=== PATIENT | male | born 1960 | race Caucasian/White ===

== ENCOUNTER → 2016-12-13 | Outpatient (REF) | payer BC | LOC: M LAB REF 11:53 | PROVIDERS: ATTEND Internal Medicine Medical Oncology | DX: D45 Polycythemia vera (principal) ==

== ENCOUNTER → 2016-12-16 | Outpatient (REF) | payer BC ==
[2016-12-19 00:09] LABS: HEMOGLOBIN A 97.4 % (94.0-98.0)
== END ==
LOC: M LAB REF 12:13
PROVIDERS: ATTEND Nurse Practitioner Family
DX: D45 Polycythemia vera (principal)

== ENCOUNTER → 2016-12-23 | Outpatient (REF) | payer BC | LOC: M LAB REF 16:37 | PROVIDERS: ATTEND Internal Medicine Medical Oncology | DX: D75.0 Familial erythrocytosis (principal) ==

== ENCOUNTER → 2017-02-11 | Outpatient (REF) | payer BC | LOC: M LAB REF 12:32 | PROVIDERS: ATTEND Internal Medicine Medical Oncology | DX: D75.1 Secondary polycythemia (principal) ==

== ENCOUNTER → 2017-05-16 | Outpatient (REF) | payer BC ==
[2017-05-16 19:08] LABS: MEAN CORPUSCULAR HEMOGLOBIN 29.4 pg (27.0-33.0); MEAN CORPUSCULAR HGB CONC 34.4 g/dl (32.0-36.5); MEAN CORPUSCULAR VOLUME 85.7 fl (80.0-96.0); RED CELL DISTRIBUTION WIDTH 14.7 % (11.5-14.5)
== END ==
LOC: M LABDRAW1 18:01
PROVIDERS: ATTEND Internal Medicine Endocrinology, Diabetes & Metabolism
DX: E29.1 Testicular hypofunction (principal)
CPT/HCPCS: 36415; 84403; 85027; G0103

== ENCOUNTER → 2017-09-05 | Outpatient (CLI) | payer BC ==
--- NOTE | 2017-09-05 10:10 | REP ---
Maxillofacial CT without contrast: History: Chronic maxillary sinusitis. Comparison study February 26, 2012. Technique: Helical scanning is acquired. Bone and soft-tissue window settings are reviewed for 3 mm axial reformatted images. Coronal multiplanar re-formation images are also generated and reviewed. CT findings: Mucosal thickening is again noted in the frontal and ethmoid sinuses bilaterally. Minimal mucosal thickening is seen in the anterior sims of the sphenoid sinuses. There is mild left maxillary sinus mucosal thickening and moderate right maxillary sinus mucosal thickening visible. No bony destructive lesion is seen. No intraorbital lesion is seen. The visualized intracranial structures are unremarkable. The bony nasal septum deviates somewhat to the right with a minimal beak the configuration. Nasal turbinate and soft tissues are symmetric. There is no evidence of nasal polyp. There is an aerated flaca bullosa in the left superior turbinate unchanged. The ostiomeatal complexes are obscured by mucosal thickening bilaterally. This is less prominent on the right but more prominent on the left than it was in the 2012 study. Mastoid aeration is normal and symmetric. Impression: Mucosal thickening consistent with polysinusitis. Right maxillary sinus is most pronounced. Bilateral OMC mucosal thickening is seen. Signed by Bassem Jacobson MD 09/05/2017 04:13 P
== END ==
LOC: M RAD 08:57
PROVIDERS: ATTEND Otolaryngology
DX: J32.0 Chronic maxillary sinusitis (principal)

== ENCOUNTER → 2017-11-17 | Outpatient (REF) | payer BC ==
[2017-11-17 19:54] LABS: INFLUENZA A AMPLIFICATION NEGATIVE (NEGATIVE); INFLUENZA B AMPLIFICATION POSITIVE (NEGATIVE)
== END ==
LOC: M LAB REF 18:15
DX: J11.1 Influenza due to unidentified influenza virus with other respiratory manifestations (principal)
CPT/HCPCS: 87502

== ENCOUNTER → 2018-11-06 | Outpatient (REF) | payer BC ==
[2018-11-06 13:47] LABS: HEMATOCRIT 41.4 % (42.0-52.0); HEMOGLOBIN 14.6 g/dl (13.5-17.5); MEAN CORPUSCULAR HEMOGLOBIN 31.7 pg (27.0-33.0); MEAN CORPUSCULAR HGB CONC 35.3 g/dl (32.0-36.5); MEAN CORPUSCULAR VOLUME 89.8 fl (80.0-96.0); PLATELET COUNT, AUTOMATED 349 10^3/uL (150-450); RED BLOOD COUNT 4.61 10^6/uL (4.30-6.10); WHITE BLOOD COUNT 9.3 10^3/uL (4.0-10.0)
[2018-11-06 13:49] LABS: APPEARANCE, URINE HAZY (CLEAR); BACTERIA, URINE AUTO NEGATIVE (NEGATIVE); BILIRUBIN, URINE AUTO NEGATIVE (NEGATIVE); BLOOD, URINE BLOOD NEGATIVE (NEGATIVE); COLOR, URINE YELLOW (YELLOW); GLUCOSE, URINE (UA) AUTO NEGATIVE (NEGATIVE); KETONE, URINE AUTO NEGATIVE (NEGATIVE); LEUKOCYTE ESTERASE, URINE AUTO NEGATIVE (NEGATIVE); MUCUS, URINE SMALL (NEGATIVE); NITRITE, URINE AUTO NEGATIVE (NEGATIVE); PROTEIN, URINE AUTO NEGATIVE (NEGATIVE); RBC, URINE AUTO 1 /HPF (0-3); SPECIFIC GRAVITY URINE AUTO 1.017 (1.002-1.035); SQUAMOUS EPITHELIAL CELL UR AU 0 /HPF (0-6); UROBILINOGEN, URINE AUTO 0.2 mg/dL (0.0-2.0); WBC, URINE AUTO 0 /HPF (0-3)
[2018-11-06 14:14] LABS: ALBUMIN 3.7 GM/DL (3.2-5.2); ALT/SGPT 20 U/L (12-78); BILIRUBIN,TOTAL 0.5 MG/DL (0.2-1.0); BLOOD UREA NITROGEN 22 MG/DL (7-18); C REACTIVE PROTEIN QUANTITATIV 2.43 MG/DL (0.00-0.30); CALCIUM LEVEL 8.7 MG/DL (8.5-10.1); CARBON DIOXIDE LEVEL 31 MEQ/L (21-32); CHLORIDE LEVEL 98 MEQ/L (98-107); CHOLESTEROL LEVEL 124 MG/DL (<200); CHOLESTEROL RISK RATIO 2.296 (<5); CREATININE FOR GFR 0.85 MG/DL (0.70-1.30); FERRITIN 382 NG/ML (26-388); GLOMERULAR FILTRATION RATE > 60.0 (>56); GLUCOSE, FASTING 98 MG/DL (70-100); HDL CHOLESTEROL 54 MG/DL (>40); LDL CHOLESTEROL 56 MG/DL (<100); NON-HDL-C 70 MG/DL; POTASSIUM SERUM 4.2 MEQ/L (3.5-5.1); PROSTATIC SPECIFIC AG MONITOR 0.93 NG/ML (< 4.00); SODIUM LEVEL 136 MEQ/L (136-145); THYROXINE (T4) 10.2 UG/DL (4.5-12.0); TOTAL PROTEIN 7.6 GM/DL (6.4-8.2); TRIGLYCERIDES LEVEL 72 MG/DL (<150); URIC ACID 4.1 MG/DL (3.5-7.2)
[2018-11-06 14:15] LABS: TOTAL 25(OH) VITAMIN D 42.8 NG/ML (30.0-100.0)
[2018-11-06 14:16] LABS: FOLATE 18.6 NG/ML (>5.4)
[2018-11-06 14:19] LABS: ERYTHROCYTE SEDIMENTATION RATE 54 mm/hr (0-20)
[2018-11-06 14:34] LABS: HEMOGLOBIN A1c 5.1 %
== END ==
LOC: M LABDRAW1 12:09
PROVIDERS: ATTEND Internal Medicine Cardiovascular Disease
DX: M10.9 Gout, unspecified (principal); E55.9 Vitamin D deficiency, unspecified; E78.5 Hyperlipidemia, unspecified; D64.9 Anemia, unspecified; E03.9 Hypothyroidism, unspecified; E11.9 Type 2 diabetes mellitus without complications; N39.0 Urinary tract infection, site not specified

== ENCOUNTER → 2018-11-20 | Outpatient (REF) | payer BC ==
[2018-11-24 08:06] LABS: Lyme Disease IgG Ab 18 kDa Ban Absent (.); Lyme Disease IgG Ab 23 kDa Ban Absent (.); Lyme Disease IgG Ab 28 kDa Ban Absent (.); Lyme Disease IgG Ab 30 kDa Ban Absent (.); Lyme Disease IgG Ab 39 kDa Ban Absent (.); Lyme Disease IgG Ab 41 kDa Ban Absent (.); Lyme Disease IgG Ab 45 kDa Ban Absent (.); Lyme Disease IgG Ab 58 kDa Ban Absent (.); Lyme Disease IgG Ab 66 kDa Ban Absent (.); Lyme Disease IgG Ab 93 kDa Ban Absent (.); Lyme Disease IgG West Blot Int Negative (.); Lyme Disease IgG/IgM Antibodie 1.21 ISR (0.00-0.90); Lyme Disease IgM Ab 23 kDa Ban Absent (.); Lyme Disease IgM Ab 39 kDa Ban Absent (.); Lyme Disease IgM Ab 41 kDa Ban Absent (.); Lyme Disease IgM Ab Quantitati <0.80 index (0.00-0.79); Lyme Disease IgM West Blot Int Negative (.)
== END ==
LOC: M LABNEURO 10:35
PROVIDERS: ATTEND Internal Medicine Cardiovascular Disease
DX: Z11.2 Encounter for screening for other bacterial diseases (principal)

== ENCOUNTER → 2018-12-17 | Outpatient (CLI) | payer BC | LOC: M LAB 16:52 | PROVIDERS: ATTEND Psychiatry & Neurology Neurology | DX: M35.3 Polymyalgia rheumatica (principal) ==

== ENCOUNTER → 2019-01-18 | Outpatient (REF) | payer BC | LOC: M LABNEURO 09:01 | PROVIDERS: ATTEND Psychiatry & Neurology Neurology | DX: M35.3 Polymyalgia rheumatica (principal) ==

== ENCOUNTER → 2019-02-01 | Outpatient (REF) | payer BC | LOC: M LABNEURO 10:17 | PROVIDERS: ATTEND Psychiatry & Neurology Neurology | DX: M35.3 Polymyalgia rheumatica (principal) ==

== ENCOUNTER → 2019-02-16 | Outpatient (REF) | payer BC | LOC: M LABNEURO 08:52 | PROVIDERS: ATTEND Psychiatry & Neurology Neurology | DX: M35.3 Polymyalgia rheumatica (principal) ==

== ENCOUNTER → 2019-04-05 | Outpatient (REF) | payer BC | LOC: M LABNEURO 13:00 | PROVIDERS: ATTEND Psychiatry & Neurology Neurology | DX: M35.3 Polymyalgia rheumatica (principal) ==

== ENCOUNTER → 2019-05-12 | Outpatient (REF) | payer BC ==
[2019-05-12 18:58] LABS: BASO # 0.1 10^3/uL (0.0-0.2); EOS # 0.1 10^3/uL (0.0-0.50); EOS % 0.7 % (0.0-3.0); HEMATOCRIT 49.5 % (42.0-52.0); HEMOGLOBIN 17.3 g/dl (13.5-17.5); LYMPH # 2.2 10^3/uL (1.5-4.5); LYMPH % 26.8 % (24.0-44.0); MEAN CORPUSCULAR HEMOGLOBIN 32.8 pg (27.0-33.0); MEAN CORPUSCULAR HGB CONC 34.9 g/dl (32.0-36.5); MEAN CORPUSCULAR VOLUME 93.9 fl (80.0-96.0); MONO # 0.4 10^3/uL (0.0-0.8); MONO % 5.2 % (0.0-5.0); NEUTROPHILS # 5.4 10^3/uL (1.8-7.7); NEUTROPHILS % 65.8 % (36.0-66.0); PLATELET COUNT, AUTOMATED 235 10^3/uL (150-450); RED BLOOD COUNT 5.27 10^6/uL (4.30-6.10); WHITE BLOOD COUNT 8.1 10^3/uL (4.0-10.0)
[2019-05-12 19:56] LABS: ERYTHROCYTE SEDIMENTATION RATE 1 mm/hr (0-20)
== END ==
LOC: M LABNEURO 15:18
PROVIDERS: ATTEND Psychiatry & Neurology Neurology
DX: M35.3 Polymyalgia rheumatica (principal)

== ENCOUNTER → 2019-05-31 | Outpatient (REF) | payer BC | LOC: M LABDRAW1 09:50 | PROVIDERS: ATTEND Psychiatry & Neurology Neurology | DX: M05.9 Rheumatoid arthritis with rheumatoid factor, unspecified (principal) ==

== ENCOUNTER → 2019-06-04 | Outpatient (REF) | payer BC ==
[2019-06-04 15:57] LABS: HEMATOCRIT 48.5 % (42.0-52.0); HEMOGLOBIN 17.6 g/dl (13.5-17.5); MEAN CORPUSCULAR HGB CONC 36.3 g/dl (32.0-36.5); MEAN CORPUSCULAR VOLUME 93.8 fl (80.0-96.0); PLATELET COUNT, AUTOMATED 240 10^3/uL (150-450); RED BLOOD COUNT 5.17 10^6/uL (4.30-6.10); WHITE BLOOD COUNT 8.3 10^3/uL (4.0-10.0)
[2019-06-04 16:27] LABS: ALBUMIN 4.1 GM/DL (3.2-5.2); ALT/SGPT 42 U/L (12-78); BILIRUBIN,TOTAL 0.7 MG/DL (0.2-1.0); BLOOD UREA NITROGEN 18 MG/DL (7-18); CALCIUM LEVEL 9.6 MG/DL (8.5-10.1); CARBON DIOXIDE LEVEL 28 MEQ/L (21-32); CHLORIDE LEVEL 103 MEQ/L (98-107); CHOLESTEROL LEVEL 176 MG/DL (< 200); CPK CREATINE PHOSPHOKINASE 54 U/L (39-308); CREATININE FOR GFR 0.98 MG/DL (0.70-1.30); GLOMERULAR FILTRATION RATE > 60.0 (>56); GLUCOSE, FASTING 74 MG/DL (70-100); LDH LACTATE DEHYDROGENASE 216 U/L (87-241); PHOSPHORUS LEVEL 3.7 MG/DL (2.5-4.9); POTASSIUM SERUM 3.9 MEQ/L (3.5-5.1); RHEUMATOID FACTOR QUANT < 10.0 IU/ML (<15.0); SODIUM LEVEL 141 MEQ/L (136-145); TRIGLYCERIDES LEVEL 37 MG/DL (<150)
[2019-06-10 00:06] LABS: ANCA-ATYPICAL <1:20 titer (Neg:<1:20); ANTI DS-DNA AB <1:10 titer (.); ANTI SCLERODERMA ANTIBODIES <0.2 AI (0.0-0.9); ANTINUCLEAR ANTIBODIES DIRECT Negative (Negative); CYTOPLASMIC NEUTROP AB ANCA-C <1:20 titer (Neg:<1:20); PERINUCLEAR AB ANCA-P <1:20 titer (Neg:<1:20); RNP ANTIBODIES <0.2 AI (0.0-0.9); SMITH ANTIBODIES <0.2 AI (0.0-0.9)
== END ==
LOC: M LABDRAW1 13:37
PROVIDERS: ATTEND Internal Medicine Cardiovascular Disease
DX: E87.6 Hypokalemia (principal); M32.9 Systemic lupus erythematosus, unspecified; M06.9 Rheumatoid arthritis, unspecified; D64.9 Anemia, unspecified; M35.3 Polymyalgia rheumatica; M15.9 Polyosteoarthritis, unspecified

== ENCOUNTER → 2019-07-20 | Outpatient (REF) | payer BC ==
[2019-07-20 14:12] LABS: BASO # 0.1 10^3/uL (0.0-0.2); EOS # 0.7 10^3/uL (0.0-0.5); EOS % 11.2 % (0.0-3.0); HEMATOCRIT 44.5 % (42.0-52.0); HEMOGLOBIN 15.9 g/dl (13.5-17.5); LYMPH # 2.4 10^3/uL (1.5-5.0); MEAN CORPUSCULAR HEMOGLOBIN 33.3 pg (27.0-33.0); MEAN CORPUSCULAR HGB CONC 35.7 g/dl (32.0-36.5); MEAN CORPUSCULAR VOLUME 93.3 fl (80.0-96.0); MONO # 0.6 10^3/uL (0.0-0.8); MONO % 9.4 % (0.0-5.0); NEUTROPHILS # 2.5 10^3/uL (1.5-8.5); NEUTROPHILS % 40.2 % (36.0-66.0); PLATELET COUNT, AUTOMATED 248 10^3/uL (150-450); RED BLOOD COUNT 4.77 10^6/uL (4.30-6.10); WHITE BLOOD COUNT 6.3 10^3/uL (4.0-10.0)
[2019-07-20 15:11] LABS: ERYTHROCYTE SEDIMENTATION RATE 2 mm/hr (0-20)
== END ==
LOC: M LABNEURO 10:31
PROVIDERS: ATTEND Psychiatry & Neurology Neurology
DX: M35.3 Polymyalgia rheumatica (principal)

== ENCOUNTER → 2019-10-13 | Outpatient (CLI) | payer BC ==
[2019-10-13 11:40] LABS: BASO # 0.1 10^3/uL (0.0-0.2); BASO % 1.6 % (0.0-1.0); EOS # 0.2 10^3/uL (0.0-0.5); EOS % 3.8 % (0.0-3.0); HEMOGLOBIN 15.7 g/dl (13.5-17.5); LYMPH # 1.4 10^3/uL (1.5-5.0); LYMPH % 32.1 % (24.0-44.0); MEAN CORPUSCULAR HEMOGLOBIN 33.4 pg (27.0-33.0); MEAN CORPUSCULAR HGB CONC 35.7 g/dl (32.0-36.5); MEAN CORPUSCULAR VOLUME 93.6 fl (80.0-96.0); MONO # 0.3 10^3/uL (0.0-0.8); MONO % 7.2 % (0.0-5.0); NEUTROPHILS # 2.5 10^3/uL (1.5-8.5); NEUTROPHILS % 54.9 % (36.0-66.0); PLATELET COUNT, AUTOMATED 257 10^3/uL (150-450); WHITE BLOOD COUNT 4.5 10^3/uL (4.0-10.0)
[2019-10-13 12:04] LABS: ERYTHROCYTE SEDIMENTATION RATE 2 mm/hr (0-20)
== END ==
LOC: M LAB 10:37
PROVIDERS: ATTEND Psychiatry & Neurology Neurology
DX: M35.3 Polymyalgia rheumatica (principal)

== ENCOUNTER → 2019-11-16 | Outpatient (REF) | payer BC ==
[2019-11-16 13:25] LABS: BASO # 0.1 10^3/uL (0.0-0.2); BASO % 1.5 % (0.0-1.0); EOS # 0.4 10^3/uL (0.0-0.5); EOS % 6.8 % (0.0-3.0); HEMATOCRIT 45.1 % (42.0-52.0); HEMOGLOBIN 15.8 g/dl (13.5-17.5); LYMPH # 2.7 10^3/uL (1.5-5.0); LYMPH % 49.9 % (24.0-44.0); MEAN CORPUSCULAR HEMOGLOBIN 32.4 pg (27.0-33.0); MEAN CORPUSCULAR VOLUME 92.6 fl (80.0-96.0); MONO # 0.5 10^3/uL (0.0-0.8); NEUTROPHILS # 1.7 10^3/uL (1.5-8.5); NEUTROPHILS % 32.6 % (36.0-66.0); PLATELET COUNT, AUTOMATED 258 10^3/uL (150-450); RED BLOOD COUNT 4.87 10^6/uL (4.30-6.10); WHITE BLOOD COUNT 5.3 10^3/uL (4.0-10.0)
[2019-11-16 13:59] LABS: ERYTHROCYTE SEDIMENTATION RATE 2 mm/hr (0-20)
== END ==
LOC: M LABNEURO 13:04
PROVIDERS: ATTEND Psychiatry & Neurology Neurology
DX: M35.3 Polymyalgia rheumatica (principal)

== ENCOUNTER → 2019-12-21 | Outpatient (CLI) | payer BC ==
[2019-12-21 17:58] LABS: BASO # 0.1 10^3/uL (0.0-0.2); BASO % 0.9 % (0.0-1.0); EOS # 0.2 10^3/uL (0.0-0.5); HEMATOCRIT 47.1 % (42.0-52.0); HEMOGLOBIN 16.8 g/dl (13.5-17.5); LYMPH # 2.4 10^3/uL (1.5-5.0); LYMPH % 37.6 % (24.0-44.0); MEAN CORPUSCULAR HGB CONC 35.7 g/dl (32.0-36.5); MEAN CORPUSCULAR VOLUME 89.7 fl (80.0-96.0); MONO # 0.4 10^3/uL (0.0-0.8); MONO % 5.4 % (0.0-5.0); NEUTROPHILS # 3.4 10^3/uL (1.5-8.5); NEUTROPHILS % 52.9 % (36.0-66.0); PLATELET COUNT, AUTOMATED 214 10^3/uL (150-450); RED BLOOD COUNT 5.25 10^6/uL (4.30-6.10); WHITE BLOOD COUNT 6.4 10^3/uL (4.0-10.0)
[2019-12-21 19:09] LABS: ERYTHROCYTE SEDIMENTATION RATE 1 mm/hr (0-20)
== END ==
LOC: M LAB 16:28
PROVIDERS: ATTEND Psychiatry & Neurology Neurology
DX: M35.3 Polymyalgia rheumatica (principal)

== ENCOUNTER → 2020-03-12 | Outpatient (CLI) | payer BC ==
[2020-03-12 13:08] LABS: BASO # 0.1 10^3/uL (0.0-0.2); EOS # 0.6 10^3/uL (0.0-0.5); EOS % 9.2 % (0.0-3.0); HEMATOCRIT 43.3 % (42.0-52.0); HEMOGLOBIN 15.5 g/dl (13.5-17.5); LYMPH # 2.4 10^3/uL (1.5-5.0); LYMPH % 39.2 % (24.0-44.0); MEAN CORPUSCULAR HEMOGLOBIN 32.2 pg (27.0-33.0); MEAN CORPUSCULAR HGB CONC 35.8 g/dl (32.0-36.5); MEAN CORPUSCULAR VOLUME 89.8 fl (80.0-96.0); MONO # 0.5 10^3/uL (0.0-0.8); MONO % 8.7 % (0.0-5.0); NEUTROPHILS # 2.5 10^3/uL (1.5-8.5); NEUTROPHILS % 41.7 % (36.0-66.0); PLATELET COUNT, AUTOMATED 232 10^3/uL (150-450); RED BLOOD COUNT 4.82 10^6/uL (4.30-6.10); WHITE BLOOD COUNT 6.1 10^3/uL (4.0-10.0)
[2020-03-12 13:30] LABS: ERYTHROCYTE SEDIMENTATION RATE 2 mm/hr (0-20)
== END ==
LOC: M LAB 12:25
PROVIDERS: ATTEND Psychiatry & Neurology Neurology
DX: M35.3 Polymyalgia rheumatica (principal)

== ENCOUNTER → 2020-04-22 | Outpatient (CLI) | payer BC | LOC: M LAB 09:53 | PROVIDERS: ATTEND Psychiatry & Neurology Neurology | DX: M35.3 Polymyalgia rheumatica (principal); M25.50 Pain in unspecified joint ==

== ENCOUNTER → 2020-08-06 | Outpatient (CLI) | payer BC | LOC: M LAB 13:17 | PROVIDERS: ATTEND Psychiatry & Neurology Neurology | DX: M35.3 Polymyalgia rheumatica (principal); M25.50 Pain in unspecified joint ==

== ENCOUNTER → 2020-09-26 | Outpatient (CLI) | payer SELFPAY | LOC: M LABSMTC 11:33 | PROVIDERS: ATTEND Pediatrics | DX: Z11.52 Encounter for screening for COVID-19 (principal) ==

== ENCOUNTER → 2020-10-02 | Outpatient (CLI) | payer SELFPAY | LOC: M LABSMTC 11:03 | PROVIDERS: ATTEND Pediatrics | DX: Z20.822 Contact with and (suspected) exposure to COVID-19 (principal) ==

== ENCOUNTER → 2020-10-21 | Outpatient (CLI) | payer SELFPAY | LOC: M LABSMTC 10:04 | PROVIDERS: ATTEND Pediatrics | DX: Z20.822 Contact with and (suspected) exposure to COVID-19 (principal) ==

== ENCOUNTER → 2020-10-29 | Outpatient (CLI) | payer BC | LOC: M LABSMTC 09:34 | PROVIDERS: ATTEND Pediatrics | DX: Z20.822 Contact with and (suspected) exposure to COVID-19 (principal) ==

== ENCOUNTER → 2020-10-29 | Outpatient (CLI) | payer BC | LOC: M LABSMTC 09:33 | PROVIDERS: ATTEND Pediatrics | DX: Z20.822 Contact with and (suspected) exposure to COVID-19 (principal) ==

== ENCOUNTER → 2020-11-03 | Outpatient (CLI) | payer BC | LOC: M LAB 15:46 | PROVIDERS: ATTEND Psychiatry & Neurology Neurology | DX: M79.10 Myalgia, unspecified site (principal) ==

== ENCOUNTER → 2020-11-18 | Outpatient (CLI) | payer SELFPAY | LOC: M LABSMTC 09:29 | PROVIDERS: ATTEND Pediatrics | DX: Z11.52 Encounter for screening for COVID-19 (principal) ==

== ENCOUNTER 2021-01-08 18:45 | Observation (INO) | payer BC ==
[~2021-01-08] VITALS: Ht 193 cm; Wt 95.6 kg
[2021-01-08] MEDS ORDERED: ACTE162I (18:58)
[2021-01-08] MEDS ORDERED: METH4PACK (18:58)
[2021-01-08] MEDS ORDERED: MOME50SP2 ×2 (18:58→21:05)
[2021-01-08] MEDS ORDERED: metroNIDAZOLE 500 MG in IV 1 EA IV ONE (20:10)
[2021-01-08] MEDS ORDERED: CIPROFLOXACIN 400 MG in IV 1 EA IV ONE (20:10)
[2021-01-08 20:48] LABS: BASO # 0.1 10^3/uL (0.0-0.2); BASO % 0.6 % (0.0-1.0); EOS # 0.3 10^3/uL (0.0-0.5); HEMATOCRIT 49.5 % (42.0-52.0); HEMOGLOBIN 17.4 g/dl (13.5-17.5); LYMPH # 2.3 10^3/uL (1.5-5.0); LYMPH % 15.9 % (24.0-44.0); MEAN CORPUSCULAR HEMOGLOBIN 31.1 pg (27.0-33.0); MEAN CORPUSCULAR HGB CONC 35.2 g/dl (32.0-36.5); MEAN CORPUSCULAR VOLUME 88.6 fl (80.0-96.0); MONO # 0.8 10^3/uL (0.0-0.8); MONO % 5.2 % (2.0-8.0); PLATELET COUNT, AUTOMATED 247 10^3/uL (150-450); RED BLOOD COUNT 5.59 10^6/uL (4.30-6.10); WHITE BLOOD COUNT 14.4 10^3/uL (4.0-10.0)
[2021-01-08] MEDS ORDERED: L-GL500T5 PO (21:05)
[2021-01-08] MEDS ORDERED: VITMTA PO (21:05)
[2021-01-08] MEDS ORDERED: ACTE20IN SC (21:05)
[2021-01-08] MEDS ORDERED: AZEL0.055 (21:05)
[2021-01-08] MEDS ORDERED: METH4TAB8 PO (21:05)
[2021-01-08] MEDS ORDERED: L-AR1000 PO (21:05)
[2021-01-08 21:21] LABS: RSV AMPLIFICATION NEGATIVE (NEGATIVE)
[2021-01-08] MEDS ORDERED: MORPHINE 2 MG/ML 1ML VIAL (J2270) IV PRN (21:30)
[2021-01-08] MEDS ORDERED: MOM 30ML SUSPENSION UDC PO PRN (22:00)
[2021-01-08] MEDS ORDERED: KETOROLAC 30 MG/ML 1ML VIAL IV PRN (22:00)
[2021-01-08] MEDS ORDERED: ONDANSETRON 4MG/2ML VIAL IV PRN (22:00)
[2021-01-08] MEDS ORDERED: NS 1,000 ML IV ONE (22:00)
[2021-01-08] MEDS ORDERED: MORPHINE 4 MG/ML 1ML VIAL/SYRINGE (J2270) IV PRN (22:00)
[2021-01-08] MEDS ORDERED: ACETAMINOPHEN TAB 650MG DOSE (2X325MG) PO PRN (22:00)
[2021-01-08] MEDS ORDERED: MAALOX 30 ML SUSP *UDC PO PRN (22:00)
[2021-01-08] MEDS ORDERED: metroNIDAZOLE 500 MG in IV 1 EA IV SCH (22:10)
[2021-01-08 22:29] LABS: ALBUMIN 3.7 GM/DL (3.2-5.2); ALT/SGPT 25 U/L (12-78); BILIRUBIN,TOTAL 1.1 MG/DL (0.2-1.0); BLOOD UREA NITROGEN 22 MG/DL (7-18); CALCIUM LEVEL 8.2 MG/DL (8.5-10.1); CARBON DIOXIDE LEVEL 28 MEQ/L (21-32); CHLORIDE LEVEL 104 MEQ/L (98-107); CREATININE FOR GFR 0.93 MG/DL (0.70-1.30); GLOMERULAR FILTRATION RATE > 60.0 (>56); GLUCOSE, FASTING 86 MG/DL (70-100); POTASSIUM SERUM 3.9 MEQ/L (3.5-5.1); SODIUM LEVEL 131 MEQ/L (136-145)
--- NOTE | 2021-01-08 22:32 | HPEPDOC ---
[facility] Medical History & Physical Date of Admission Jan 08, 2021 Date of Service: Jan 08, 2021 Attending Physician: RAD KILLIAN MD History and Physical CHIEF COMPLAINT: [60 y/o male c/o lower abd pain x2 days] HISTORY OF PRESENT ILLNESS: [This is a 60 y/o male with a pmh of a-fib s/p 6 ablations, CHF, polymyalgia rheumatica who presents to the ED after receiving at CT scan ordered by his primary provider he saw earlier in the day that showed an acute diverticulitis. Patient states he had appt made due to acute onset lower abdominal pain x2 days. Patient states that his pain began saturday 01/06 and has persisted. His pain is located across his lower abdomen and does not radiate. Patient ate a jar of peanuts a day or so prior to his abd pain onset. Patient states that he had a few episodes of emesis about a week or so prior, but none since the pain has arisen. Patient does not complain of any nausea or vomiting now. Patient states that he feels he is constipated as he has not had a bowel movement in approx. 3 days which is uncommon for him. Patient also endorses some pain with urination and urinary hesitancy. Patient denies fevers, chills, chest pains, shortness of breath, diarrhea, dark stools, hematuria, malaise.] PAST MEDICAL HISTORY: 1. [See HPI PAST SURGICAL HISTORY: 1. [Cholecystectomy]. 2. [Cardiac ablations x6]. SOCIAL HISTORY: Marital status: []. Resides in: [Home with ] Tobacco use:[Former, approx 35 years] ETOH: [About 5 drinks/week on weekends] Illicit drug use: [Denies] FAMILY HISTORY: Reviewed - none ALLERGIES: Please see below. REVIEW OF SYSTEMS: CONSTITUTIONAL: [See HPI]. HEENT: [Denies URI sx]. CARDIOVASCULAR: [See HPI]. RESPIRATORY: [See HPI]. GASTROINTESTINAL: [See HPI]. GENITOURINARY: [Complains of some dysuria]. SKIN: [Denies rash]. MUSCULOSKELETAL: [Denies acute joint pain]. NEUROLOGICAL: [Denies paresthesias]. ENDOCRINE: [Denies hx of dm]. HEMATOLOGIC/LYMPHATIC: [Denies easy bruising]. HOME MEDICATIONS: Please see below. PHYSICAL EXAMINATION: VITAL SIGNS: Please se below. GENERAL APPEARANCE: [This is a wn/wd 60 year old male. He is resting in bed.]. HEENT: [No mass or lesion. EOMI. No scleral icterus or conjunctival erythema. Nares patent. Oral mucosa moist]. CARDIOVASCULAR: [Regular rate, rhythm. No murmurs, rubs or gallops]. LUNGS: [Good air flow auscultated. No wheezing, rales, rhonchi.]. ABDOMEN: [Soft, tender in RLQ and LLQ, left worse than right. ]. MUSCULOSKELETAL: [No joint deformity]. EXTREMITIES: [No peripheral edema noted. Pulses intact. No skin changes]. NEUROLOGICAL: [Speech clear. A+Ox3. No focal deficits]. PSYCHIATRIC: [Mood and affect appear appropriate.]. LABORATORY DATA: See below. IMAGING: [CT abd/pelvis: FINDINGS: Preliminary digital aemt radiograph is unremarkable. The lung bases are clear on axial CT images. The liver and spleen are normal in size. There is a small hyper vascular nodule in the right lobe of the liver 10 mm in diameter. This is unchanged from the December 24, 2016 prior study and is compatible with a small benign hemangioma. The liver is otherwise homogeneous in texture. There is a tiny accessory splenule. The gallbladder is surgically absent. Kidneys enhance symmetrically. There is a tiny intrarenal calculus in the lower pole collecting system of the right kidney, 2 mm in size. There is no evidence of hydronephrosis. A small subcentimeter cyst is observed in the upper pole on the left. No abnormality is noted in the pancreas. No retroperitoneal mass or adenopathy is seen. Normal caliber aorta is seen with minimal calcification. There are a oral contrast filled mildly dilated loops of central abdominal small bowel consistent with small bowel ileus. There is no evidence of free intraperitoneal air. There is however well established a diverticulitis affecting the sigmoid colon with moderate mural thickening, pericolonic streaking and inflammation, and a 1.5 cm area of Ofe colonic gas. No abscess is seen. IMPRESSION: Moderate to advanced sigmoid colon diverticulitis with pericolonic gas and streaky inflammation. Ileus pattern in the small bowel. No free air or abscess seen. Incidental findings include a tiny intrarenal calculus lower pole right kidney and a stable benign hemangioma the liver.] MICROBIOLOGY: Please see below. ASSESSMENT: [This is a 60 y/o male with a hx of a-fib s/p ablation, chf and polymyalgia rheumatica who presents to our ED today 01/08 with a c/c of abdominal pain. CT scan, results above, shows obvious diverticulosis. Of note, patient states that he has not had a bowel movement the duration of his symptoms.]. . PLAN: 1. [Acute Diverticulitis - Inflammatory vs. infectious. More likely inflammatory. - Patient has white count of 14, no signs of abscess or perforation on CT scan - Will begin tylenol for mild pain, toradol for moderate pain, morphine for severe pain - Will begin zofran for nausea - Will continue flagyl started in ed. patient also received dose of cipro in the ed. - Will give IVF as oral intake has been decreased - Discussed patient should be on a high fiber diet, avoid nuts, popcorn. - Will admit under obs for iv abx, pain meds. will monitor symptoms, white count 2. Constipation - Will give milk of mag, senna. If patient does not have a bm, will give suppository 3. A-fib - patient reports no more hx of a-fib, chf since undergoing ablations - stable 4. Polymyalgia rheumatica - continue at home steroid 5. DVT prophylaxis - Lovenox]. Vital Signs Vital Signs Date Time Temp Pulse Resp B/P (MAP) Pulse Ox O2 Delivery O2 Flow Rate FiO2 01/08/21 21:39 83 16 151/89 (109) 98 01/08/21 18:48 97.4 Room Air Laboratory Data Labs 24H Laboratory Tests 2 01/08/21 20:10: Immature Granulocyte % (Auto) 0.3, Neutrophils (%) (Auto) 76.0H, Lymphocytes (%) (Auto) 15.9L, Monocytes (%) (Auto) 5.2, Eosinophils (%) (Auto) 2.0, Basophils (%) (Auto) 0.6, Neutrophils # (Auto) 11.0H, Lymphocytes # (Auto) 2.3, Monocytes # (Auto) 0.8, Eosinophils # (Auto) 0.3, Basophils # (Auto) 0.1, Nucleated Red Blood Cells % (auto) 0.0, Lactic Acid Level 0.9 01/08/21 20:15: Coronavirus (COVID-19)(PCR) NEGATIVE, Influenza Type A (RT-PCR) NEGATIVE, Influenza Type B (RT-PCR) NEGATIVE, Respiratory Syncytial Virus (PCR) NEGATIVE 01/08/21 21:28: CBC/BMP Laboratory Tests 01/08/21 20:10 Home Medications Scheduled Arginine HCl (l-Arginine) 1,000 Mg Tablet, 500 MG PO DAILY PART OF [facility] [employer] [employer] Azelastine HCl (Azelastine HCl) 0.15% [place].pump, 2 SPRAYS NA DAILY Glutamine (l-Glutamine) 500 Mg Tablet, 500 MG PO DAILY PART OF [facility] [employer] Methylprednisolone (Methylprednisolone) 4 Mg Tablet, 4 MG PO DAILY Mometasone Furoate (Mometasone Furoate) 17 Gm [place].pump, 2 SPRAYS NA DAILY Multivitamins (Thera M Plus Tablet) 1 Each Tablet, 1 TAB PO DAILY TAKES [facility] [employer] [employer] Tocilizumab (Actemra) 162 Mg/0.9 Ml Syringe, 162 MG SC Q2WK Allergies Coded Allergies: Penicillins (Verified Allergy, Unknown, 01/08/21) A-FIB/CHADSVASC A-FIB History Current/History of A-Fib/PAF?: Yes Current PO Anticoag Therapy: No (s/p ablation) Attending Note Attending Note time of service 957 pm Mr. Lutz is a 60 yr old w a hx of unspecified CHF, Afib that resolved after 6 ablations, & PMR who presented w c/o abdominal pain and loose stools; CT scan done at an outside facility showed sigmoid diverticulitis therefore he was sent here for further treatment. He also has mild hyponatremia of unclear cause. Plan: c/w abx / f/u work up for Hyponatremia / request records regarding his Cardiac hx from 's office / the patient will need to be referred to GI on out pt basis for c-scope 6 weeks after resolution of symptoms rest per LON Velasquez's H&P FER VELASQUEZ Jan 08, 2021 22:32 RAD KILLIAN MD Jan 09, 2021 03:22
[2021-01-09 00:47] VITALS: BP 132/86
[2021-01-09 01:08] LABS: APPEARANCE, URINE CLEAR (CLEAR); BACTERIA, URINE AUTO NEGATIVE (NEGATIVE); BILIRUBIN, URINE AUTO NEGATIVE (NEGATIVE); BLOOD, URINE BLOOD NEGATIVE (NEGATIVE); COLOR, URINE YELLOW (YELLOW); GLUCOSE, URINE (UA) AUTO NEGATIVE (NEGATIVE); KETONE, URINE AUTO TRACE mg/dL (NEGATIVE); LEUKOCYTE ESTERASE, URINE AUTO NEGATIVE (NEGATIVE); NITRITE, URINE AUTO NEGATIVE (NEGATIVE); PROTEIN, URINE AUTO NEGATIVE (NEGATIVE); RBC, URINE AUTO 1 /HPF (0-3); SPECIFIC GRAVITY URINE AUTO 1.036 (1.002-1.035); SQUAMOUS EPITHELIAL CELL UR AU 0 /HPF (0-6); UROBILINOGEN, URINE AUTO 0.2 mg/dL (0.0-2.0); WBC, URINE AUTO 0 /HPF (0-3)
[2021-01-09 01:47] VITALS: BP 132/86
[2021-01-09 03:50] LABS: OSMOLALITY SERUM 291 MOSM/KG (275-295)
[2021-01-09 05:54] VITALS: BP 130/81
[2021-01-09 05:58] LABS: OSMOLALITY URINE 693 MOSM/KG (50-1400)
[2021-01-09] MEDS ORDERED: metroNIDAZOLE 750 MG in IV 1 EA IV SCH (06:00)
[2021-01-09 06:23] LABS: SODIUM,RANDOM URINE 120 MEQ/L
[2021-01-09 06:48] LABS: HEMOGLOBIN 16.7 g/dl (13.5-17.5); MEAN CORPUSCULAR HEMOGLOBIN 31.5 pg (27.0-33.0); MEAN CORPUSCULAR HGB CONC 34.8 g/dl (32.0-36.5); MEAN CORPUSCULAR VOLUME 90.6 fl (80.0-96.0); PLATELET COUNT, AUTOMATED 226 10^3/uL (150-450); WHITE BLOOD COUNT 13.5 10^3/uL (4.0-10.0)
[2021-01-09 08:17] LABS: BLOOD UREA NITROGEN 16 MG/DL (7-18); CALCIUM LEVEL 8.1 MG/DL (8.5-10.1); CARBON DIOXIDE LEVEL 29 MEQ/L (21-32); CHLORIDE LEVEL 105 MEQ/L (98-107); CREATININE FOR GFR 0.78 MG/DL (0.70-1.30); GLOMERULAR FILTRATION RATE > 60.0 (>56); GLUCOSE, FASTING 99 MG/DL (70-100); POTASSIUM SERUM 3.9 MEQ/L (3.5-5.1); SODIUM LEVEL 141 MEQ/L (136-145)
[2021-01-09] MEDS ORDERED: DOCUSATE SODIUM 100MG CAPSULE PO SCH (09:00)
[2021-01-09] MEDS ORDERED: ENOXAPARIN 40MG/0.4ML SYRINGE (J1650 PER 10MG) SC SCH (09:00)
[2021-01-09] MEDS ORDERED: FLUTICASONE PROP 0.05% NASAL SPRAY 16 GM (FLONASE) NARES SCH (09:00)
[2021-01-09] MEDS ORDERED: MULTIVITAMINS/MINERALS THERAP 1 TAB PO SCH (09:00)
--- NOTE | 2021-01-09 10:43 | IPNPDOC ---
Text Note Date of Service The patient was seen on 01/09/21. NOTE Subjective: It was seen and examined this morning at bedside. Tells me his abdominal pain is resolved he is feeling well tolerated his diet this morning without any abdominal side effects. Denies any fevers or chills denies chest pain or shortness of breath. Objective: Constitutional: Awake and alert, in no apparent distress ENT: Sclera are clear. Mucosa is moist. Respiratory: Lungs CTA bilaterally. No respiratory distress. Cardiovascular: RRR S1 and S2 are normal, no murmur Gastrointestinal: Abdomen is soft, non distended, non tender, BS present. Musculoskeletal: No edema. No joint deformities. Neurologic: No focal neurological deficit. Mental Status: A&O x3, normal affect Skin: Warm, dry Assessment/plan: This is a 60 y/o male with a hx of a-fib s/p ablation, chf and polymyalgia rheumatica who presents to our ED today 01/08 with a c/c of abdominal pain. CT scan, results above, shows obvious diverticulosis. Of note, patient states that he has not had a bowel movement the duration of his symptoms. . PLAN: 1. Acute Diverticulitis - Leukocytosis downtrending 13.5. no signs of abscess or perforation on CT scan - Was initially treated with IV Cipro and Flagyl. Will be discharged home with oral Augmentin for 7 more days. - On physical exam no abdominal tenderness. He tolerated diet well. 2. Constipation -Resolved with bowel regiment 3. A-fib: s/p ablation 4. Polymyalgia rheumatica: continue at home steroid A Reji Hospitalist Kalyn LAGOS I+O Kalyn LAGOS I+O Laboratory Tests 01/08/21 20:10 01/08/21 21:28 01/09/21 05:26 Vital Signs Date Time Temp Pulse Resp B/P (MAP) Pulse Ox O2 Delivery O2 Flow Rate FiO2 01/09/21 05:54 99.4 82 18 130/81 (97) 94 Room Air I&O- Last 24 Hours up to 6 AM 01/09/21 06:00 Intake Total 775 ml Output Total 850 ml Balance -75 ml EVANGELINA KENDALL MD Jan 09, 2021 10:43
[2021-01-09] MEDS ORDERED: DOK1CAP7 PO (10:46)
[2021-01-09] MEDS ORDERED: MOXI1TAB PO (10:46)
[2021-01-09 11:06] LABS: CORTISOL AM 19.3 UG/DL (4.3-22.4)
== END 2021-01-09 11:35 | disposition home or self-care (01) ==
LOC: M ED 18:45 → M ED INP 22:06 → INTOOBSV 22:06 → ENRESERV 23:55 → M MS5PR 01-09 00:46
PROVIDERS: ADMIT Internal Medicine; ATTEND Family Medicine
DX: K57.32 Diverticulitis of large intestine without perforation or abscess without bleeding (principal); D72.829 Elevated white blood cell count, unspecified; E87.1 Hypo-osmolality and hyponatremia; K59.00 Constipation, unspecified; R30.0 Dysuria; R39.11 Hesitancy of micturition; I48.91 Unspecified atrial fibrillation; Z98.890 Other specified postprocedural states; R10.9 Unspecified abdominal pain; M35.3 Polymyalgia rheumatica; I50.9 Heart failure, unspecified; I11.0 Hypertensive heart disease with heart failure; Z79.899 Other long term (current) drug therapy; Z88.0 Allergy status to penicillin; Z87.891 Personal history of nicotine dependence
CPT/HCPCS: 36415; 80048; 80053; 81001; 82533; 83605; 83930; 83935; 84145; 84300; 84443; 85025; 85027; 87631; 96361; 96365; 96366; 96368; 96372; 96375; 96376; 99284; J0744; J1650; J1885; J2270

== ENCOUNTER → 2021-01-08 | Outpatient (CLI) | payer BC ==
[~2021-01-08] MED LIST: ACTE162I; ACTE20IN SC; AZEL0.055; DOK1CAP7 PO; GASTROGRAFIN SOLUTION 30ML (Q9963) As Ordered ONE; ISOVUE-370 76% 100ML VIAL As Ordered ONE; L-AR1000 PO; L-GL500T5 PO; METH4PACK; METH4TAB8 PO; MOME50SP2; MOXI1TAB PO; VITMTA PO
--- NOTE | 2021-01-08 18:14 | REP ---
INDICATION: DIVERTICULITIS. COMPARISON: Comparison CT study December 24, 2016.. TECHNIQUE: Helical scanning is acquired and 3 mm axial images re-formatted. Coronal and sagittal MPR images are generated. The CT contrast enhancement dose is 100 mL of intravenous Isovue 370. Oral contrast was also administered. FINDINGS: Preliminary digital rocket scientist radiograph is unremarkable. The lung bases are clear on axial CT images. The liver and spleen are normal in size. There is a small hyper vascular nodule in the right lobe of the liver 10 mm in diameter. This is unchanged from the December 24, 2016 prior study and is compatible with a small benign hemangioma. The liver is otherwise homogeneous in texture. There is a tiny accessory splenule. The gallbladder is surgically absent. Kidneys enhance symmetrically. There is a tiny intrarenal calculus in the lower pole collecting system of the right kidney, 2 mm in size. There is no evidence of hydronephrosis. A small subcentimeter cyst is observed in the upper pole on the left. No abnormality is noted in the pancreas. No retroperitoneal mass or adenopathy is seen. Normal caliber aorta is seen with minimal calcification. There are a oral contrast filled mildly dilated loops of central abdominal small bowel consistent with small bowel ileus. There is no evidence of free intraperitoneal air. There is however well established a diverticulitis affecting the sigmoid colon with moderate mural thickening, pericolonic streaking and inflammation, and a 1.5 cm area of Ofe colonic gas. No abscess is seen. IMPRESSION: Moderate to advanced sigmoid colon diverticulitis with pericolonic gas and streaky inflammation. Ileus pattern in the small bowel. No free air or abscess seen. Incidental findings include a tiny intrarenal calculus lower pole right kidney and a stable benign hemangioma the liver. Findings were telephoned to the referring provider at the time of the study. <Electronically signed by Jared Jacobson > 01/08/21 [id number]
== END ==
LOC: M RAD 16:00
PROVIDERS: ATTEND Internal Medicine Cardiovascular Disease
DX: K57.32 Diverticulitis of large intestine without perforation or abscess without bleeding (principal); N20.0 Calculus of kidney; D18.03 Hemangioma of intra-abdominal structures
CPT/HCPCS: 74177; Q9963; Q9967

== ENCOUNTER → 2021-04-06 | Outpatient (CLI) | payer BC ==
[~2021-04-06] MED LIST changes: -GASTROGRAFIN SOLUTION 30ML (Q9963) As Ordered ONE; +GASTROGRAFIN SOLUTION 30ML (Q9963) ONE; -ISOVUE-370 76% 100ML VIAL As Ordered ONE; +ISOVUE-370 76% 100ML VIAL ONE
--- NOTE | 2021-04-06 10:26 | REP ---
INDICATION: DIVERTICULITIS, COMP TO 01/10/21. COMPARISON: 01/08/2021 TECHNIQUE: Axial contrast-enhanced images from the lung bases to the pubic symphysis using oral and 100 cc Isovue 370 intravenous contrast material. Delayed images of the abdomen along with coronal and sagittal reformations obtained. This CT examination was performed using the following dose reduction techniques: Automated exposure control, adjustment of mA and/or kv according to the patient's size, and the use of iterative reconstruction technique. FINDINGS: Liver demonstrates hypervascular focus in the right lobe suggesting small hemangioma. Spleen, pancreas, bilateral adrenal glands and kidneys are normal. The enteric system including stomach, small, and large bowel appears relatively normal. No evidence for obstruction or acute inflammatory process. Normal terminal ileum and appendix are identified in the right lower quadrant. Diffuse colonic and predominately sigmoid diverticulosis noted without acute diverticulitis. Previous diverticulitis has resolved. Pelvis demonstrates normal bladder and prostatomegaly. No ascites. No free air. No intraperitoneal or retroperitoneal adenopathy. Abdominal aorta and vasculature appear normal. Musculoskeletal structures are intact and without acute osseous abnormality. IMPRESSION: No acute abdominopelvic pathology appreciated. Diverticulosis without acute diverticulitis. Previously noted sigmoid diverticulitis resolved. Prostatomegaly. <Electronically signed by Jordan Leger > 04/06/21 [id number]
== END ==
LOC: M PLAIMG 07:53
PROVIDERS: ATTEND Internal Medicine Gastroenterology
DX: K57.32 Diverticulitis of large intestine without perforation or abscess without bleeding (principal); N40.0 Benign prostatic hyperplasia without lower urinary tract symptoms
CPT/HCPCS: 74177; Q9963; Q9967

== ENCOUNTER → 2021-05-03 | Outpatient (CLI) | payer BC ==
[~2021-05-03] MED LIST changes: +DOK1CAP4 PO; -DOK1CAP7 PO; -GASTROGRAFIN SOLUTION 30ML (Q9963) ONE; -ISOVUE-370 76% 100ML VIAL ONE; +NEXI40CA PO
== END ==
LOC: M LABSMTC 12:18
PROVIDERS: ATTEND Anesthesiology
DX: Z01.818 Encounter for other preprocedural examination (principal)

== ENCOUNTER 2021-05-08 10:23 | Day surgery (SDC) | payer BC ==
[~2021-05-08] VITALS: Ht 193 cm; Wt 93.6 kg
[~2021-05-08 10:23] MED LIST changes: +NS 1,000 ML IV ONE
[2021-05-08] MEDS ORDERED: propofoL 200 MG/20 ML VIAL As Ordered ONE ×3 (11:38→12:41)
[2021-05-08] MEDS ORDERED: LIDOCAINE 2% 100MG/5ML SDV (FOR ANES.) As Ordered ONE (12:04)
--- NOTE | 2021-05-08 12:55 | ROOR ---
Patient Name: Khai Lutz Procedure Date: 05/08/2021 12:18 PM Date of : 1960 Age: 60 Room: [facility] Gender: Male Note Status: Finalized Procedure: Colonoscopy Indications: Abnormal CT of the GI tract Providers: Edward Marin MD Referring MD: Oleg Henderson MD Requesting Provider: Medicines: Monitored Anesthesia Care Complications: No immediate complications. Procedure: Pre-Anesthesia Assessment: - The heart rate, respiratory rate, oxygen saturations, blood pressure, adequacy of pulmonary ventilation, and response to care were monitored throughout the procedure. The Colonoscope was introduced through the anus and advanced to the terminal ileum, with identification of the appendiceal orifice and IC valve. The colonoscopy was performed without difficulty. The patient tolerated the procedure well. The quality of the bowel preparation was fair. Findings: The perianal and digital rectal examinations were normal. Multiple medium-mouthed diverticula were found in the sigmoid colon and descending colon. A 5 mm polyp was found in the proximal sigmoid colon. The polyp was semi-pedunculated. The polyp was removed with a cold snare. Resection and retrieval were complete. To prevent bleeding after the polypectomy, two hemostatic clips were successfully placed. There was no bleeding at the end of the procedure. Internal hemorrhoids were found during retroflexion. The hemorrhoids were small. The exam was otherwise without abnormality on direct and retroflexion views. Impression: - Preparation of the colon was fair. - Diverticulosis in the sigmoid colon. - One 5 mm polyp in the proximal sigmoid colon, removed with a cold snare. Resected and retrieved. Clips were placed. - Internal hemorrhoids. - The examination was otherwise normal on direct and retroflexion views. Recommendation: - Telephone endoscopist for pathology results in 2 weeks. - Await pathology results. - Repeat colonoscopy for surveillance based on pathology results. - Repeat colonoscopy in 3 - 5 years for surveillance. Procedure Code(s): --- Professional --- 75528, Colonoscopy, flexible; with removal of tumor(s), polyp(s), or other lesion(s) by snare technique Diagnosis Code(s): --- Professional --- R93.3, Abnormal findings on diagnostic imaging of other parts of digestive tract K57.30, Diverticulosis of large intestine without perforation or abscess without bleeding K63.5, Polyp of colon K64.8, Other hemorrhoids CPT copyright 2019 [employer]. All rights reserved. The codes documented in this report are preliminary and upon telegraph office manager review may be revised to meet current compliance requirements. Edward Marin MD Edward Marin MD 05/08/2021 12:55:27 PM Electronically signed by Edward Marin MD Number of Addenda: 0 Note Initiated On: 05/08/2021 12:18 PM Estimated Blood Loss: Estimated blood loss: none.
[2021-05-08 13:16] VITALS: BP 128/71
== END 2021-05-08 13:22 | disposition home or self-care (01) ==
LOC: M OPP 10:23
PROVIDERS: ATTEND Internal Medicine Gastroenterology
DX: R93.3 Abnormal findings on diagnostic imaging of other parts of digestive tract (principal); D12.5 Benign neoplasm of sigmoid colon; K57.30 Diverticulosis of large intestine without perforation or abscess without bleeding; K64.8 Other hemorrhoids; G47.30 Sleep apnea, unspecified; M19.90 Unspecified osteoarthritis, unspecified site; Z87.891 Personal history of nicotine dependence; Z79.899 Other long term (current) drug therapy; Z82.49 Family history of ischemic heart disease and other diseases of the circulatory system

== ENCOUNTER → 2021-05-12 | Outpatient (CLI) | payer BC ==
[~2021-05-12] MED LIST changes: -NS 1,000 ML IV ONE
== END ==
LOC: M LABSMTC 09:11
PROVIDERS: ATTEND Pediatrics
DX: Z20.822 Contact with and (suspected) exposure to COVID-19 (principal)

== ENCOUNTER → 2021-07-24 | Outpatient (CLI) | payer BC ==
--- NOTE | 2021-07-24 15:58 | REP ---
INDICATION: RT ELBOW PAIN. COMPARISON: None. TECHNIQUE: Three views with olecranon view FINDINGS: There is soft tissue swelling in the region of the olecranon bursa. Calcifications are seen in the superior aspect of the soft tissue swelling. There is no acute fracture or joint effusion. IMPRESSION: Findings consistent with calcific olecranon bursitis. Certainly, the exact nature of the calcifications cannot be determined by this exam and a they could represent calcifications within the triceps tendon due to chronic change as well. <Electronically signed by Talon Portillo > 07/24/21 [id number]
== END ==
LOC: M SOG 14:43
PROVIDERS: ATTEND Orthopaedic Surgery Sports Medicine
DX: M25.521 Pain in right elbow (principal); M71.4 Calcium deposit in bursa

== ENCOUNTER → 2021-07-25 | Outpatient (CLI) | payer BC ==
--- NOTE | 2021-07-25 13:55 | REP ---
INDICATION: RIGHT ELBOW PAIN. COMPARISON: Radiographs 07/24/2021. TECHNIQUE: Multiple sequences obtained in the axial, coronal and sagittal planes. FINDINGS: The osseous structures demonstrate no abnormal bone marrow signal. The common flexor and extensor tendons demonstrate no abnormal signal. The medial and lateral collateral ligaments are intact. There is a full-thickness and essentially complete tear of the distal triceps tendon. There is diffuse adjacent soft tissue edema. There is an associated avulsion fracture of the olecranon which is mildly displaced proximally. The biceps, brachialis and brachioradialis appear intact. No ganglion cyst is seen. There is a small amount of joint fluid. No osteochondral defect is seen. The ulnar nerve demonstrates no significant enlargement and is essentially unremarkable. IMPRESSION: Full-thickness essentially complete tear of the distal triceps tendon. <Electronically signed by Sylvain Lutz > 07/25/21 [id number]
== END ==
LOC: M RAD 12:38
PROVIDERS: ATTEND Orthopaedic Surgery Sports Medicine
DX: S46.311A Strain of muscle, fascia and tendon of triceps, right arm, initial encounter (principal); M25.521 Pain in right elbow; X58.XXXA Exposure to other specified factors, initial encounter; Y92.9 Unspecified place or not applicable; Y93.9 Activity, unspecified; Y99.9 Unspecified external cause status

== ENCOUNTER → 2022-01-23 | Outpatient (CLI) | payer BC | LOC: M LABSMTC 09:10 | PROVIDERS: ATTEND Family Medicine | DX: Z20.822 Contact with and (suspected) exposure to COVID-19 (principal) | CPT/HCPCS: 87426; C9803 ==

== ENCOUNTER → 2024-05-07 | Outpatient (CLI) | payer BC, OTHER ==
[~2024-05-07] MED LIST changes: -AZEL0.055; +AZEL1SPR4
[2024-05-07 17:58] LABS: BASO # 0.1 10^3/uL (0.0-0.2); BASO % 0.7 % (0.0-1.0); EOS # 0.2 10^3/uL (0.0-0.5); EOS % 2.7 % (0.0-3.0); HEMATOCRIT 45.5 % (42.0-52.0); HEMOGLOBIN 16.6 g/dl (13.5-17.5); LYMPH # 2.2 10^3/uL (1.5-5.0); LYMPH % 26.8 % (24.0-44.0); MEAN CORPUSCULAR HEMOGLOBIN 33.2 pg (27.0-33.0); MEAN CORPUSCULAR HGB CONC 36.5 g/dl (32.0-36.5); MONO # 0.5 10^3/uL (0.0-0.8); MONO % 6.2 % (2.0-8.0); NEUTROPHILS # 5.3 10^3/uL (1.5-8.5); NEUTROPHILS % 63.1 % (36.0-66.0); PLATELET COUNT, AUTOMATED 271 10^3/uL (150-450); WHITE BLOOD COUNT 8.4 10^3/uL (4.0-10.0)
[2024-05-07 18:20] LABS: ALBUMIN 4.1 G/DL (3.2-5.2); ALKALINE PHOSPHATASE 64 U/L (46-116); ALT/SGPT 38 U/L (7.0-40); AST/SGOT 17 U/L (<34); BILIRUBIN,TOTAL 0.8 MG/DL (0.3-1.2); BLOOD UREA NITROGEN 18 MG/DL (9-23); CALCIUM LEVEL 9.4 MG/DL (8.3-10.6); CARBON DIOXIDE LEVEL 33 MMOL/L (20-31); CHLORIDE LEVEL 103 MMOL/L (98-107); CHOLESTEROL LEVEL 187 MG/DL (<200); CHOLESTEROL RISK RATIO 2.26 (<5); CPK CREATINE PHOSPHOKINASE 99 U/L (46-171); CREATININE FOR GFR 0.88 MG/DL (0.70-1.30); GLOMERULAR FILTRATION RATE > 60.0 (>49); GLUCOSE, FASTING 105 MG/DL (74-106); HDL CHOLESTEROL 82.5 MG/DL (>40); LDL CHOLESTEROL 83.3 MG/DL (<100); NON-HDL-C 104.5 MG/DL; SODIUM LEVEL 140 MMOL/L (136-145); TOTAL PROTEIN 7.4 G/DL (5.7-8.2); TRIGLYCERIDES LEVEL 106 MG/DL (<150)
== END ==
LOC: M LAB 16:32
PROVIDERS: ATTEND Internal Medicine Cardiovascular Disease
DX: D64.9 Anemia, unspecified (principal); E87.6 Hypokalemia; I50.20 Unspecified systolic (congestive) heart failure; R06.00 Dyspnea, unspecified; R07.9 Chest pain, unspecified

== ENCOUNTER → 2025-01-22 | Outpatient (CLI) | payer BC ==
[2025-01-22 13:16] LABS: BASO # 0.1 10^3/uL (0.0-0.2); BASO % 1.4 % (0.0-1.0); EOS # 0.6 10^3/uL (0.0-0.5); EOS % 7.3 % (0.0-3.0); HEMATOCRIT 46.1 % (42.0-52.0); HEMOGLOBIN 16.4 g/dl (13.5-17.5); LYMPH # 2.8 10^3/uL (1.5-5.0); LYMPH % 35.9 % (24.0-44.0); MEAN CORPUSCULAR HGB CONC 35.6 g/dl (32.0-36.5); MEAN CORPUSCULAR VOLUME 92.8 fl (80.0-96.0); MONO # 0.7 10^3/uL (0.0-0.8); MONO % 8.7 % (2.0-8.0); NEUTROPHILS # 3.6 10^3/uL (1.5-8.5); NEUTROPHILS % 46.6 % (36.0-66.0); PLATELET COUNT, AUTOMATED 239 10^3/uL (150-450); RED BLOOD COUNT 4.97 10^6/uL (4.30-6.10); WHITE BLOOD COUNT 7.8 10^3/uL (4.0-10.0)
[2025-01-22 13:25] LABS: ERYTHROCYTE SEDIMENTATION RATE 1 mm/hr (0-20)
[2025-01-22 13:50] LABS: C REACTIVE PROTEIN QUANTITATIV < 0.50 MG/DL (<1.0)
[2025-01-22 13:52] LABS: ALKALINE PHOSPHATASE 56 U/L (40-129); ALT/SGPT 30 U/L (7.0-40); AST/SGOT 11 U/L (<34); BILIRUBIN,TOTAL 0.8 MG/DL (0.3-1.2); BLOOD UREA NITROGEN 22 MG/DL (9-23); CALCIUM LEVEL 9.3 MG/DL (8.3-10.6); CARBON DIOXIDE LEVEL 33 MMOL/L (20-31); CHLORIDE LEVEL 102 MMOL/L (98-107); CREATININE FOR GFR 0.86 MG/DL (0.70-1.30); GLOMERULAR FILTRATION RATE > 90.0 (>49); GLUCOSE, FASTING 84 MG/DL (74-106); SODIUM LEVEL 142 MMOL/L (136-145); TOTAL 25(OH) VITAMIN D 67.8 NG/ML (20.0-100.0)
== END ==
LOC: M LAB 12:18
PROVIDERS: ATTEND Internal Medicine Rheumatology
DX: M35.3 Polymyalgia rheumatica (principal); Z79.899 Other long term (current) drug therapy

== ENCOUNTER → 2025-09-03 | Outpatient (CLI) | payer BC ==
[2025-09-03 13:14] LABS: BASO # 0.1 10^3/uL (0.0-0.2); BASO % 1.1 % (0.0-1.0); EOS # 0.4 10^3/uL (0.0-0.5); EOS % 4.9 % (0.0-3.0); LYMPH # 1.8 10^3/uL (1.5-5.0); LYMPH % 22.4 % (24.0-44.0); MONO # 0.5 10^3/uL (0.0-0.8); MONO % 6.6 % (2.0-8.0); NEUTROPHILS # 5.1 10^3/uL (1.5-8.5); NEUTROPHILS % 64.7 % (36.0-66.0); PLATELET COUNT, AUTOMATED 253 10^3/uL (150-450)
== END ==
LOC: M LAB 12:45
PROVIDERS: ATTEND Internal Medicine Rheumatology
DX: M35.3 Polymyalgia rheumatica (principal)